=== PATIENT | female | born 1980 | race Caucasian/White ===

== ENCOUNTER 2024-12-09 15:52 | Outpatient (CLI) | payer BC, SELFPAY ==
--- OUTSIDE RECORDS SUMMARY | 2024-04-12 06:00 | XMS_ITS ---
Author Organization [facility] Address [address] [place] [id number] Care Team Providers Care Optical Mechanic Apprentice Name Role Phone Hi Argueta Unavailable [phone] Allergies Allergen (clinical drug ingredient) Drug/Non Drug Allergy documented on EMR Reaction Allergy Type Onset Date Status Penicillin Unknown reaction Drug Allergy Active Results Component Value Reference Range Notes Glucose (In-House) Reviewed date:04/15/2024 08:54:38 AM Interpretation:144 Performing Lab: Notes/Report: 144 blood glucose 144 74 - 106 mg/dL CBC Venipuncture (in house) Reviewed date:04/15/2024 08:54:38 AM Interpretation:wbc 10.3 Performing Lab: Notes/Report: wbc 10.3 wbc 10.3 3.5 - 10 lymph 36.0 15 - 50 mid 5.8 2 - 15 gran 58.2 35 - 80 rbc 5.15 3.5 - 5.5 hgb 13.9 11.5 - 16.5 hct 42.6 35 - 55 mcv 82.7 75 - 100 mch 27.1 25 - 35 mchc 32.7 31 - 38 platlet 296 100 - 400 Glycohemoglobin A1c (in hous e) Reviewed date:04/15/2024 08:54:38 AM Interpretation:6.5% Performing Lab: Notes/Report: 6.5% glycohemoglobin 6.5% 5 - 6.5 % P-Comprehensive Metabolic Pa hakeem (CMP) Reviewed date:04/15/2024 08:54:38 AM Interpretation:gluc 124 Performing Lab: Notes/Report: Test performed by [employer], [employer] [facility] , [address], [place] [address] Иван Sorto MD, Still Operator Brandy CLIA: [id number] Sodium 141 135-145 mmol/L Potassium 4.4 3.5-5.3 mmol/L Chloride 106 97-108 mmol/L CO2 26 22-32 mmol/L Glucose 124 65-99 mg/dL BUN 15 6-20 mg/dL Creatinine 0.76 0.50-1.00 mg/dL Calcium 9.1 8.6-10.4 mg/dL eGFR by Creatinine 99 >59 mL/min/1.73m2 Protein 6.8 6.0-8.3 g/dL Albumin 4.1 3.5-5.3 g/dL Alkaline Phosphatase 86 35-121 IU/L ALT (SGPT) 26 <5-47 IU/L AST (SGOT) 19 <5-40 IU/L Bilirubin, Total 0.3 <0.2-1.2 mg/dL A/G Ratio 1.5 1.1-2.5 P-Lipid Panel Reviewed date:04/15/2024 08:54:38 AM Interpretation:non-hdl 146 Performing Lab: Notes/Report: Test performed by [employer], [address] , [address], [place] [address] Иван Sorto MD, Still Operator Brandy CLIA: [id number] Cholesterol 197 <200 mg/dL Triglycerides 90 <150 mg/dL HDL Cholesterol 51 >39 mg/dL Cholesterol / HDL Ratio 3.86 0.00-4.44 Ratio Non-HDL Cholesterol 146 <130 mg/dL LDL Cholesterol (Calculation) 128 <130 mg/dL LDL Cholesterol Levels* Less than 100 mg/dL Optimal 100 to 129 mg/dL Near Optimal/ Above Optimal 130 to 159 mg/dL Borderline High 160 to 189 mg/dL High 190 mg/dL and above Very High * Categories as recommended by the 2004 ATPIII guidelines LDL/HDL Ratio 2.5 <3.3 Ratio LDL Cholesterol Patient History Test Date: 04/12/2024 LDL Results: 128 Units: mg/dL % Change: - P-TSH reflex to FT4 Reviewed date:04/15/2024 08:54:38 AM Interpretation: Normal Performing Lab: Notes/Report: Test performed by [facility] [address] [place] [address] , [facility] [place] [address] Иван Sorto MD, Still Operator Brandy CLIA: [id number] TSH reflex to FT4 1.11 0.43-5.25 mU/L P-Vitamin D 25-Hydroxy Reviewed date:04/15/2024 08:54:38 AM Interpretation:14.8 Performing Lab: Notes/Report: Test performed by [facility] [address] [place] [address] , [place] [address] Иван Sorto MD, Still Operator Brandy CLIA: [id number] Vitamin D 25-Hydroxy 14.8 30.0-100.0 ng/mL Interpretation of Vitamin D 25 OH: < 20 ng/mL - Deficiency 20 - 29 ng/mL - Insufficiency 30 - 100 ng/mL - Sufficiency > 100 ng/mL - Super-therapeutic- toxicity may occur above this level. Clinical correlation required. Reason For Referral Diagnosis 1 Leukocytosis, unspec ified (D72.829) Referral Organization [facility] Referring Provider First Name Hi Referring Provider Last Name Kendall Referring Provider Speciality Family Pra ctice Referred Provider Didier Gonzalez Referred Provider Specialty Hematology/O ncology General Notes Sadie Castillo 04/12/19 10:55:52 AM > [facility] to [facility] OncologyAnna Brynn 04/24/2024 8:48:43 AM > 04/23/2024 Referral Priority Routine REASON FOR VISIT muscle aches, labwork Medications Medication SIG (Take, Route, Frequency, Duration) Notes Start Date End Date Status Fluticasone Propionate 50 MCG/ACT 1 spray in each nostril Nasally once daily 04/12/2024 Active Loratadine 10 MG 1 tablet Orally Once a day 04/12/2024 Active Problems Problem Type SNOMED Code ICD Code Onset Dates Problem Status W/U Status Risk Notes Problem Leukocytosis (508731995) Leukocytosis, unspecified (D72.829) Active confirmed Problem Morbid obesity (292988946) Morbid obesity (E66.01) Active confirmed Problem Allergic rhinitis (50688339) Allergic rhinitis, unspecified seasonality, unspecified trigger (J30.9) Active confirmed Problem Vitamin D deficiency (22458549) Vitamin D deficiency (E55.9) Active confirmed Vital Signs Blood pressure systolic 130 mm Hg 04/12/19 25 Blood pressure diastolic 82 mm Hg 025 Heart Rate 65 /min 04/12/2024 Height 64 in 04/12/2024 Weight 301.4 lbs 04/12/2024 BMI 51.73 kg/m2 04/12/2024 Encounters Encounter Location Date Provider Diagnosis [facility] [address] [facility] [address] [place], [place] [id number] 04/12/2024 Hi Argueta IFG (impaired fastin g glucose) R73.01 ; Leukocytosis, unspecified D72.829 ; Morbid obesity E66.01 ; Allergic rhinitis, unspecified seasonality, unspecified trigger J30.9 ; Otalgia, left ear H92.02 and Vitamin D deficiency E55.9 Assessments Encounter Date Diagnosis (ICD Code) Assessment Notes Treatment Notes Treatment Clinical Notes Section Notes 04/12/2024 IFG (impaired fasting glucose) (ICD-10 - R73.01) 04/12/2024 Leukocytosis, unspecified (ICD-10 - D72.829) 04/12/2024 Morbid obesity (ICD-10 - E66.01) diet & exercise reviewed with patient 04/12/2024 Allergic rhinitis, unspecified seasonality, unspecified trigger (ICD-10 - J30.9) 04/12/2024 Otalgia, left ear (ICD-10 - H92.02) 04/12/2024 Vitamin D deficiency (ICD-10 - E55.9) Plan Of Treatment Medication Medication Name Sig Start Date Stop Date Notes Fluticasone Propionate 50 MCG/ACT 1 spray in each nostril Nasally once daily 04/12/2024 Loratadine 10 MG 1 tablet Orally Once a day 04/12/2024 Treatment Notes Assessment Notes Morbid obesity diet & exercise revi ewed with patient Referrals Referral Date Details 04/12/2024 04/12/2024, Didier Gonzalez Next Appt Details Follow Up: 6 Months, Reason: Progress Notes * LATA BORDENDOB:1980 (43 yo F)Acc No.[id number]:04/12/2024 Progress Notes Patient: LATA KUMAR Provider: Job Argueta M.D. :1980 A ge:43 Y S ex:Female Date:04/12/2024 Address:[address] [place] [address] Subjective: * Chief Complaints: * 1 . Muscle aches, labwork. * HPI: H PI: Patient is here today for e stablishing care and would like to have lab work done. Pt is fasting today. Pt sts that she was coming in with some muscle aches but sts that they have resolved. Pt believes she was aching because her Vitamin D was low. E NT/respiratory: ringing in ear P t sts that she was having some ringing in the left ear but sts that now she feels like there is something in her ear. Pt sts that it feels like something is moving. G astroenterology: c/o Abdominal Pain P t sts that she has been having some pains in the upper abdomen as well. * ROS: D ERMATOLOGY: no R nuzhat. n o H suzie. G ASTROENTEROLOGY: no N ausea. n o V omiting. n o D iarrhea.? U ROLOGY: no D ifficulty urinating. n o B lood in urine. * Medical History: I mpaired fasting glucose, Allergic rhinitis, Basal Cell Carcinoma, right side of nose, 2018, Migraine headache, complex, Gall bladder disease, 20 pack year smoking history, quit in 2023, Elevated WBC count, followed by Heme/Onc, Vitamin D deficiency, Fatty Liver. * Surgical History: C -Section 2003, 2012, cholecystectomy 2005, Nasal Adenoids Removed 03-25-2020. * Family History: F ather: alive 71 yrs, diagnosed with Diabetes, Heart Disease, Stroke. M other: alive 65 yrs, diagnosed with Stroke. M aternal Grand Mother: diagnosed with Cancer. S ibdwayne: diagnosed with Diabetes. 2 brother(s) , 2 sister(s) . 1 son(s) , 1 daughter(s) . . * Social History: C URRENT TOBACCO USE: No . C affeine: yes, frequency: daily, coffee, tea and soft drinks. Home smoke detector use: yes. Alcohol: no. Sexually active: yes. Travel ouside [place]: no. * Medications: N one * Allergies: P enicillin: Unknown reaction. Objective: * Vitals: W t:301.4, Temp:98.6, BP:130/82, HR:65, Nurse:JULIANN, Ht:64, BMI:51.73. * Examination: E NT/Respiratory: General Appearance: N AD. E yes: P ERRLA, sclera clear. E ars: a uditory canals normal bilaterally, TM's WNL. N ose : nares patent, pale, edematous turbinates. O ral cavity : n o erythema or exudate seen on pharynx. N antonio : n o cervical lymphadenopathy. H eart : R RR, normal S1 S2. L ungs: c lear to auscultation bilaterally. Assessment: * Assessment: 1. I FG (impaired fasting glucose) - R73.01 (Primary) 2 . L eukocytosis, unspecified - D72.829 3 . M orbid obesity - E66.01 4 . A llergic rhinitis, unspecified seasonality, unspecified trigger - J30.9 5 . O talgia, left ear - H92.02 6 . V itamin D deficiency - E55.9 Plan: * Treatment: Value Reference Range A /G Ratio 1.5 1.1-2.5 - * A lbumin 4.1 3.5-5.3 - g/dL * A lkaline Phosphatase 86 35-121 - IU/L * A LT (SGPT) 26 <5-47 - IU/L * A ST (SGOT) 19 <5-40 - IU/L * B ilirubin, Total 0.3 <0.2-1.2 - mg/dL * B UN 15 6-20 - mg/dL * C alcium 9.1 8.6-10.4 - mg/dL * C hloride 106 97-108 - mmol/L * C O2 26 22-32 - mmol/L * C reatinine 0.76 0.50-1.00 - mg/dL * G lucose 124 H 65-99 - mg/dL * P otassium 4.4 3.5-5.3 - mmol/L * S odium 141 135-145 - mmol/L * P rotein 6.8 6.0-8.3 - g/dL * e GFR by Creatinine 99 >59 - mL/min/1.73m2 * Kathie Nelson 04/15/2024 8:54: 35 AM >See phone encounter ?LAB: P-Lipid Panel (Collection Date & Time - 04/12/2024 09:41 AM)?non-hdl 146* Value Reference Range C holesterol / HDL Ratio 3.86 0.00-4.44 - Ratio * C holesterol 197 <200 - mg/dL * H DL Cholesterol 51 >39 - mg/dL * L DL Cholesterol (Calculation) 128 <130 - mg/d L * L DL/HDL Ratio 2.5 <3.3 - Ratio * N on-HDL Cholesterol 146 H <130 - mg/dL * T riglycerides 90 <150 - mg/dL * Kathie Nelson 04/15/2024 8:54: 35 AM >See phone encounter ?LAB: P-TSH reflex to FT4 (Collection Date & Time - 04/12/2024 09:41 AM)? Normal* Value Reference Range T SH reflex to FT4 1.11 0.43-5.25 - mU/L * Kathie Nelson 04/15/2024 8:54: 35 AM >See phone encounter ?LAB: Glucose (In-House) (Collection Date & Time - 04/12/2024)?144* Value Reference Range b lood glucose 144 74 - 106 mg/dL * Jaelyn Ingram 04/12/2024 12:3 1:47 PM > Kathie Nelson 04/15/2024 8:54:35 AM >See phone encounter ?LAB: Glycohemoglobin A1c (in house) (Collection Date & Time - 04/12/2024)? 6.5%* Value Reference Range g lycohemoglobin 6.5% 5 - 6.5 % * Jaelyn Ingram 04/12/2024 12:3 4:19 PM > Kathie Nelson 04/15/2024 8:54:35 AM >See phone encounter 2.?Leukocytosis, unspecified?LAB: CBC Venipuncture (in house) (Collection Date & Time - 04/12/2024)?wbc 10.3* Value Reference Range w bc 10.3 3.5 - 10 * l ymph 36.0 15 - 50 * m id 5.8 2 - 15 * g ran 58.2 35 - 80 * r bc 5.15 3.5 - 5.5 * h gb 13.9 11.5 - 16.5 * h ct 42.6 35 - 55 * m cv 82.7 75 - 100 * m ch 27.1 25 - 35 * m chc 32.7 31 - 38 * p latlet 296 100 - 400 * Jaelyn Ingram 04/12/2024 12:3 3:03 PM > Kathie Nelson 04/15/2024 8:54:35 AM >See phone encounter ? Referral To:Didier Gonzalez??Hematology/Oncology ?Reason: 3.?Morbid obesity?LAB: P-Comprehensive Metabolic Panel (CMP) (Collection Date & Time - 04/12/2024 09:41 AM)?gluc 124* Value Reference Range A /G Ratio 1.5 1.1-2.5 - * A lbumin 4.1 3.5-5.3 - g/dL * A lkaline Phosphatase 86 35-121 - IU/L * A LT (SGPT) 26 <5-47 - IU/L * A ST (SGOT) 19 <5-40 - IU/L * B ilirubin, Total 0.3 <0.2-1.2 - mg/dL * B UN 15 6-20 - mg/dL * C alcium 9.1 8.6-10.4 - mg/dL * C hloride 106 97-108 - mmol/L * C O2 26 22-32 - mmol/L * C reatinine 0.76 0.50-1.00 - mg/dL * G lucose 124 H 65-99 - mg/dL * P otassium 4.4 3.5-5.3 - mmol/L * S odium 141 135-145 - mmol/L * P rotein 6.8 6.0-8.3 - g/dL * e GFR by Creatinine 99 >59 - mL/min/1.73m2 * Kathie Nelson 04/15/2024 8:54: 35 AM >See phone encounter ?LAB: P-Lipid Panel (Collection Date & Time - 04/12/2024 09:41 AM)?non-hdl 146* Value Reference Range C holesterol / HDL Ratio 3.86 0.00-4.44 - Ratio * C holesterol 197 <200 - mg/dL * H DL Cholesterol 51 >39 - mg/dL * L DL Cholesterol (Calculation) 128 <130 - mg/d L * L DL/HDL Ratio 2.5 <3.3 - Ratio * N on-HDL Cholesterol 146 H <130 - mg/dL * T riglycerides 90 <150 - mg/dL * Kathie Nelson 04/15/2024 8:54: 35 AM >See phone encounter ?LAB: P-TSH reflex to FT4 (Collection Date & Time - 04/12/2024 09:41 AM)? Normal* Value Reference Range T SH reflex to FT4 1.11 0.43-5.25 - mU/L * Kathie Nelson 04/15/2024 8:54: 35 AM >See phone encounter Notes: diet & exercise reviewed with patient??4.?Allergic rhinitis, unspecified seasonality, unspecified trigger? Start Loratadine Tablet, 10 MG, 1 tablet, Orally, Once a day, 30, Refills 1;?Start FluticasonePropionate Suspension, 50 MCG/ACT, 1 spray in each nostril, Nasally, once daily, 1, Refills 1.??5.?Vitamin D deficiency?LAB: P-Vitamin D 25-Hydroxy (Collection Date & Time - 04/12/2024 09:41 AM)? 14.8* Value Reference Range V itamin D 25-Hydroxy 14.8 L 30.0-100.0 - ng/mL * Kathie Nelson 04/15/2024 8:54: 35 AM >See phone encounter * Procedure Codes: 8 2950 GLUCOSE TEST, 59960 GLYCATED HEMOGLOBIN TEST, Modifiers: QW , 79457 CBC WITH AUTO DIFF * Follow Up: 6 Months * Images: Billing Information: * Visit Code: 33449 Office Visit, New Pt., Level 4. * Procedure Codes: 62872 GLU[address]SE TEST. 39[address] GLYCATED HEMOGLOBIN TEST. Modifiers: QW 24391 CBC WITH AUTO DIFF. * Electronic signature of Socorro Argueta MD on 12/09/2024 at 03:59 PM EDT Sign off status: Pending * Provider: Job Argueta M.D. Date: 0 04/12/2024 Generated for George goode/Xochitlg/eTransmitting on: 0 12/09/2024 03:59 PM EDT History and Physical Notes * HPI (History of Present Illness) Category Sub-Category Detail Notes Category Not es ENT/respiratory ringing in ear Pt sts that she was having some ringing in the left ear but sts that now she feels like there is something in her ear. Pt sts that it feels like something is moving Gastroenterology Abdominal Pain Pt sts that she has been having some pains in the upper abdomen as well HPI Patient is here toda y for establishing care and would like to have lab work done. Pt is fasting today. Pt sts that she was coming in with some muscle aches but sts that they have resolved. Pt believes she was aching because her Vitamin D was low Examination Category Sub-Category Detail Notes Category Not es ENT/Respiratory Oral cavity : no erythema or exudate s een on pharynx Ears: auditory canals norm al bilaterally, TM's WNL Neck : no cervical lymphade nopathy Heart : RRR, normal S1 S2 Lungs: clear to auscultatio n bilaterally General Appearance: NAD Nose : nares patent, pale, edematous turbinates Eyes: PERRLA, sclera clear Consultation Request Notes Referral Date Referring Provider Referred Provider Not es 04/12/2024 Hi Argueta Michael
--- OUTSIDE RECORDS SUMMARY | 2024-07-03 06:15 | XMS_ITS ---
Author Organization [facility] Address [address] [facility] [address] [place] [id number] Care Team Providers Care Rabbet Operator Name Role Phone Hi Argueta Unavailable [phone] Allergies Allergen (clinical drug ingredient) Drug/Non Drug Allergy documented on EMR Reaction Allergy Type Onset Date Status metformin metFORMIN vomiting Drug Allergy Active Penicillin Unknown reaction Drug Allergy Active REASON FOR VISIT fasting check blood sugar and discuss a few issues Medications Medication SIG (Take, Route, Frequency, Duration) Notes Start Date End Date Status Loratadine 10 MG 1 tablet Orally Once a day 2024 Active Fluticasone Propionate 50 MCG/ACT 1 spray in each nostril Nasally once daily 04/12/2024 Active CPAP Supplies - as directed as directed 04/15/2024 Active Ozempic (0.25 or 0.5 MG/DOSE) 2 MG/3ML 0.25 mg Subcutaneous once weekly 07/03/2024 Active Vitamin D3 1.25 MG (83424 UT) 1 capsule Orally once weekly 04/16/2024 Active Problems Problem Type SNOMED Code ICD Code Onset Dates Problem Status W/U Status Risk Notes Problem Type II diabetes mellitus without complication (870250382) Type 2 diabetes mellitus without complication, without long-term current use of insulin (E11.9) Active confirmed Vital Signs Blood pressure systolic 130 mm Hg 07/04/19 25 Blood pressure diastolic 80 mm Hg 025 Heart Rate 83 /min 07/03/2024 Height 64 in 07/03/2024 Weight 303.2 lbs 07/03/2024 BMI 52.04 kg/m2 07/03/2024 Encounters Encounter Location Date Provider Diagnosis [facility] [address] [place] [id number] 07/03/2024 Hi Argueta Type 2 diabetes mellitus without complication, without long-term current use of insulin E11.9 and Vitamin D deficiency E55.9 Assessments Encounter Date Diagnosis (ICD Code) Assessment Notes Treatment Notes Treatment Clinical Notes Section Notes 07/03/2024 Type 2 diabetes mellitus without complication, without long-term current use of insulin (ICD-10 - E11.9) 07/03/2024 Vitamin D deficiency (ICD-10 - E55.9) Plan Of Treatment Medication Medication Name Sig Start Date Stop Date Notes Ozempic (0.25 or 0.5 MG/DOSE) 2 MG/3ML 0.25 mg Subcutaneous once weekly 07/03/2024 Next Appt Details Follow Up: as scheduled,and prn, Reason: Progress Notes * LATA BORDENDOB:1980 (43 yo F)Acc No.[id number]:07/03/2024 Progress Notes Patient: LATA KUMAR Provider: Job Argueta M.D. :1980 A ge:43 Y S ex:Female Date:07/03/2024 Address:[address] [place] [address] Subjective: * Chief Complaints: * 1 . Fasting check blood sugar and discuss a few issues. * HPI: H PI: 43 year old female presents with c/o Patient is here today for?follow up on diabetes. She has not been able to tolerate metformin in the past. She still occasionally has hip pain. * ROS: D ERMATOLOGY: no R nuzhat. n o H suzie. G ASTROENTEROLOGY: no N ausea. n o V omiting. U ROLOGY: no D ifficulty urinating. n [...] 2003, 2012, cholecystectomy 2005, Nasal Adenoids Removed 03/25/2020. * Hospitalization/Major Diagno stic Procedure: D enies Past Hospitalization. * Family History: F ather: alive 71 [...] yes. Travel ouside [place]: no. * Medications: T aking Loratadine 10 MG Tablet 1 tablet Orally Once a day , Taking Fluticasone Propionate 50 MCG/ACT Suspension 1 spray in each nostril Nasally once daily , Taking CPAP Supplies - - as directed as directed , Taking Vitamin D3 1.25 MG (16687 UT) Capsule 1 capsule Orally once weekly , Medication List reviewed and reconciled with the patient * Allergies: P enicillin: Unknown reaction, metFORMIN: vomiting. Objective: * Vitals: W t: 303.2, Temp: 98.1, BP: 130/80, HR: 83, Nurse: irene, Ht: 64, BMI:52.04. * Examination: G eneral Examination: General Appearance: N AD. H ip / Thigh: Hip joint: left. R odalis of motion: n ormal flexion, extension & rotation. G ait: n ormal. Assessment: * Assessment: 1. T ype 2 diabetes mellitus without complication, without long-term current use of insulin - E11.9 (Primary) 2 . V itamin D deficiency - E55.9 Plan: * Treatment: * Procedure Codes: 3 044F HG A1C LEVEL LT 7.0%, 3075F SYST BP GE 130 - 139MM HG, 3079F DIAST BP 80-89 MM HG * Follow Up: a s scheduled,and prn * Images: Billing Information: * Visit Code: 93082 Office Visit, Est Pt., Level 3. * Procedure Codes: 3044F HG A1C LEVEL LT 7.0%. 3075F SYST BP GE 130 - 139MM HG. 3079F DIAST BP 80-89 MM HG. * Electronic signature of Socorro Argueta MD on 12/09/2024 at 03:59 PM EDT Sign off status: Pending * Provider: Job Argueta M.D. Date: 0 07/03/2024 Generated for George goode/Slime/eToctaviosmitting on: 0 12/09/2024 03:59 PM EDT History and Physical Notes * HPI (History of Present Illness) Category Sub-Category Detail Notes Category Not es HPI Patient is here today for follow up on diabetes. She has not been able to tolerate metformin in the past. She still occasionally has hip pain Examination Category Sub-Category Detail Notes Category Not es General Examination General Appearance: NAD Hip / Thigh Gait: normal Range of motion: normal flexion, exte nsion & rotation Hip joint: left
--- OUTSIDE RECORDS SUMMARY | 2024-10-17 06:45 | XMS_ITS ---
Author Organization [facility] Address [address] [facility] [address] [place] [phone] Care Team Providers Care Strings Teacher Name Role Phone Hi Argueta Unavailable [phone] Allergies Allergen (clinical drug ingredient) Drug/Non Drug [...] Interpretation:Normal Performing Lab: Notes/Report: Test performed by [facility] [address] [place] [address] , [address], [place] [address] Иван Sorto MD, Network Applications Specialist CLIA: [id number] Amylase 45 28-100 U/L P-Comprehensive Metabolic Pa hakeem (CMP) Reviewed date:10/18/2024 10:16:11 AM Interpretation:gluc 102 Performing Lab: Notes/Report: Test performed by [facility] [address] [place] [address] , [address], [place] [address] Иван Sorto MD, Network Applications Specialist CLIA: [id number] Sodium 141 135-145 mmol/L Potassium 5.0 3.5-5.3 [...] Interpretation:Normal Performing Lab: Notes/Report: Test performed by [facility] [address] [place] [address] , [address], [place] [address] Иван Sorto MD, Network Applications Specialist CLIA: [id number] Lipase 36.0 13.0-60.0 U/L P-Vitamin D 25-Hydroxy Reviewed date:10/18/2024 10:16:11 AM Interpretation:32.6 Performing Lab: Notes/Report: Test performed by [facility] [address] [place] [address] [place] [address] Иван Sorto MD, Network Applications Specialist CLIA: [id number] Vitamin D 25-Hydroxy 32.6 30.0-100.0 ng/mL Interpretation [...] End Date Status Vitamin D3 1.25 MG (67805 UT) 1 capsule Orally once weekly 04/16/2024 Active Ozempic (0.25 or 0.5 MG/DOSE) 2 MG/3ML 0.5 mg Subcutaneous once weekly; Duration: 30 days 07/03/2024 Active Fluticasone Propionate 50 MCG/ACT 1 spray in each nostril Nasally once daily 04/12/2024 Active CPAP Supplies - as directed as directed 04/15/2024 Active Loratadine 10 MG 1 tablet Orally Once a day 2024 Active Vital Signs Blood pressure systolic 130 mm Hg 10/18/19 25 Blood pressure diastolic 80 mm Hg 025 Heart Rate 73 /min 10/17/2024 Height 64 in 10/17/2024 Weight 299 lbs 10/17/2024 BMI 51.32 kg/m2 10/17/2024 Encounters Encounter Location Date Provider Diagnosis [facility] [address] [facility] [address] [place] [address], [place] [phone] 10/17/2024 Hi Argueta Type 2 diabetes mellitus [...] Notes * LATA BORDENDOB:1980 (43 yo F)Acc No.[id number]:10/17/2024 Progress Notes Patient: VICKIE KUMARECCA Provider: Job Argueta M.D. :1980 A ge:43 Y S ex:Female Date:10/17/2024 Address:[address] [place] [address], [id number] Subjective: * Chief Complaints: * 1 . [...] directed , Taking Vitamin D3 1.25 MG (90127 UT) Capsule 1 capsule Orally once weekly [...] glucose 116 74 - 106 mg/dL * Justina Quevedo 10/17/2024 11:54: 01 AM EDT >Hi Argueta 10/17/2024 11:26:22 PM EDT > ?LAB: Glycohemoglobin A1c (in house) (Collection Date & Time - 10/17/2024)? 6.2* Value Reference Range g lycohemoglobin 6.2% 5 - 6.5 % * Justina Quevedo 10/17/2024 11:54: 46 AM EDT >Hi Argueta [...] A mylase 45 28-100 - U/L * OmarKathie argueta 10/18/2024 10:1 6:04 AM EDT > See [...] * Procedure Codes: 8 2950 GLUCOSE TEST, 92411 GLYCATED HEMOGLOBIN TEST, Modifiers: QW , 65262 CBC WITH AUTO DIFF, 1036F TOBACCO NON-USER, 3044F HG A1C LEVEL LT 7.0%, 3075F SYST BP GE 130 - 139MM HG, 3079F DIAST BP 80-89 MM HG * Follow Up: 6 Months * Images: Billing Information: * Visit Code: 06713 Office Visit, Est Pt., Level 4. * Procedure Codes: 69295 GLUCOSE TEST. 32288 GLYCATED HEMOGLOBIN TEST. Modifiers: QW 67033 CBC WITH AUTO DIFF. 1036F TOBACCO NON-USER. 3044F HG A1C LEVEL LT 7.0%. 3075F SYST BP GE 130 - 139MM HG. 3079F DIAST BP 80-89 MM HG. * Electronic signature of Socorro Argueta MD on 12/09/2024 at 03:58 PM EDT Sign off status: Pending * Provider: Job Argueta M.D. Date: 0 10/17/2024 Generated for George goode/Slime/Madisonsmitting on: 0 12/09/2024 03:58 PM EDT History and Physical Notes * [...]
--- OUTSIDE RECORDS SUMMARY | 2024-12-09 15:59 | XMS_ITS | Clinical Summary ---
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 Gender Identity Not on file Sexual Orientation Not on file Plan of Treatment Health Maintenance Due Date Last Done Comments Depression Screening (12+) 1991 Tobacco Cessation Counseling and Screening (12+) 1991 HIV Screening 12/13/1994 Hepatitis C Screening 12/13/1997 DTAP/TDAP/TD VACCINES (1 - Tdap) 12/13/1998 Pap Smear 12/13/2000 Breast Cancer Screening 2019 COVID-19 VACCINE (2023-2 5 season) 2024 Influenza Vaccine (#1) 2024 Pneumococcal Vaccine: 0-49 Years Aged Out No longer eligible based on patient's age to complete this topic Insurance BC [facility] TRAD [facility] DISHA TRAD
--- OUTSIDE RECORDS SUMMARY | 2024-12-09 15:59 | XMS_ITS | Patient Health Record ---
Author Organization [facility] Address [address] [place] [id number] Care Team Providers Care Systems Development Consultant Name Role Phone Hi Argueta Unavailable [phone] Kajal Saldaña Unavailable [phone] Allergies Allergen (clinical drug ingredient) Drug/Non Drug Allergy documented on EMR Reaction Allergy Type Onset Date Status metformin metFORMIN vomiting Drug Allergy Active Penicillin Unknown reaction Drug Allergy Active Results Component Value Reference Range Notes RADHA Reviewed date:04/10/2024 02:22:59 PM Interpretation: Performing Lab: Notes/Report: P-Vitamin D 25-Hydroxy Reviewed date:04/15/2024 08:54:38 AM Interpretation:14.8 Performing Lab: Notes/Report: Test performed by [facility] [address] [place], [place] [address] , [facility], [place] [address] Иван Sorto MD, Reservoir Engineering Consultant CLIA: [id number] Vitamin D 25-Hydroxy 14.8 30.0-100.0 ng/mL Interpretation of Vitamin D 25 [place]: < 20 ng/mL - Deficiency 20 - 29 ng/mL - Insufficiency 30 - 100 ng/mL - Sufficiency > 100 ng/mL - Super-therapeutic- toxicity may occur above this level. Clinical correlation required. P-TSH reflex to FT4 Reviewed date:04/15/2024 08:54:38 AM Interpretation: Normal Performing Lab: Notes/Report: Test performed by [facility] [address] [place], [place] [address] , [facility], [place] [address] Иван Sorto MD, Reservoir Engineering Consultant CLIA: [id number] TSH reflex to FT4 1.11 0.43-5.25 mU/L P-Lipid Panel Reviewed date:04/15/2024 08:54:38 AM Interpretation:non-hdl 146 Performing Lab: Notes/Report: Test performed by [facility] [address] [place] [address] [place] [address] Иван Sorto MD, Reservoir Engineering Consultant CLIA: [id number] Cholesterol 197 <200 mg/dL Triglycerides 90 <150 [...] Results: 128 Units: mg/dL % Change: - P-Comprehensive Metabolic Pa hakeem (CMP) Reviewed date:04/15/2024 08:54:38 AM Interpretation:gluc 124 Performing Lab: Notes/Report: Test performed by [facility] [address] [place] [address] Bari [place]ha, [place] [address] Иван Sorto MD, Reservoir Engineering Consultant CLIA: [id number] Sodium 141 135-145 mmol/L Potassium 4.4 3.5-5.3 [...] 0.3 <0.2-1.2 mg/dL A/G Ratio 1.5 1.1-2.5 Glycohemoglobin A1c (in hous e) Reviewed date:04/15/2024 08:54:38 AM Interpretation:6.5% Performing Lab: Notes/Report: 6.5% glycohemoglobin 6.5% 5 - 6.5 % CBC Venipuncture (in house) Reviewed date:04/15/2024 08:54:38 [...] - 38 platlet 296 100 - 400 Glucose (In-House) Reviewed date:04/15/2024 08:54:38 AM Interpretation:144 Performing Lab: Notes/Report: 144 blood glucose 144 74 - 106 mg/dL Glycohemoglobin A1c (in hous e) Reviewed date:10/17/2024 11:26:48 PM Interpretation:6.2 Performing Lab: Notes/Report: 6.2 glycohemoglobin 6.2% 5 - 6.5 % P-Vitamin D 25-Hydroxy Reviewed date:10/18/2024 10:16:11 AM Interpretation:32.6 Performing Lab: Notes/Report: Test performed by [facility] , [place] [address] Иван Sorto MD, Reservoir Engineering Consultant CLIA: [id number] Vitamin D 25-Hydroxy 32.6 30.0-100.0 ng/mL Interpretation of Vitamin D 25 [place]: < 20 ng/mL - Deficiency 20 - 29 ng/mL - Insufficiency 30 - 100 ng/mL - Sufficiency > 100 ng/mL - Super-therapeutic- toxicity may occur above this level. Clinical correlation required. P-Lipase Reviewed date:10/18/2024 10:16:11 AM Interpretation:Normal Performing Lab: Notes/Report: Test performed by [facility] [address] [place] [address] , [address], [place] [address] Иван Sorto MD, Reservoir Engineering Consultant CLIA: [id number] Lipase 36.0 13.0-60.0 U/L P-Comprehensive Metabolic Pa hakeem (CMP) Reviewed date:10/18/2024 10:16:11 AM Interpretation:gluc 102 Performing Lab: Notes/Report: Test performed by [facility] [address] [place] [address] , [address], [place] [address] Иван Sorto MD, Reservoir Engineering Consultant CLIA: [id number] Sodium 141 135-145 mmol/L Potassium 5.0 3.5-5.3 [...] 0.3 <0.2-1.2 mg/dL A/G Ratio 1.6 1.1-2.5 P-Amylase Reviewed date:10/18/2024 10:16:11 AM Interpretation:Normal Performing Lab: Notes/Report: Test performed by [facility] [address] [place] [address] , [address], [place] [address] Иван Sorto MD, Reservoir Engineering Consultant CLIA: [id number] Amylase 45 28-100 U/L CBC Venipuncture (in house) Reviewed date:10/17/2024 11:26:38 [...] - 38 platlet 375 100 - 400 Glucose (In-House) Reviewed date:10/17/2024 11:26:25 PM Interpretation:116 Performing Lab: Notes/Report: 116 blood glucose 116 74 - 106 mg/dL Reason For Referral Diagnosis 1 Leukocytosis, unspec ified (D72.829) Referral Organization [facility] Referring Provider First Name Hi Referring Provider Last Name Kendall Referring Provider Speciality [facility] ctice Referred Provider Didier Gonzalez Referred Provider Specialty Hematology/O ncology General Notes Sadie Castillo 04/12/19 10:55:52 AM > faxed to [facility] OncologyAnna Brynn 04/24/2024 8:48:43 AM > 04/23/2024 Referral Priority Routine Medications Medication SIG (Take, Route, Frequency, Duration) Notes Start Date End Date Status CPAP Supplies - as directed as directed 04/15/2024 Active Omeprazole 20 MG 1 capsule 1/2 to 1 h our before morning meal Orally Once a day; Duration: 30 days 12/09/2024 Active Vitamin D3 1.25 MG (74409 UT) 1 capsule Orally weekly 10/20/2024 Acti ve Ozempic (1 MG/DOSE) 4 MG/3ML 1 mg Subcutaneous once a week; Duration: 30 days Active Hyoscyamine Sulfate 0.125 MG 1 tablet on the tongue and allow to dissolve as needed Orally every 8 hrs AC As needed 12/09/2024 Active metroNIDAZOLE 500 MG 1 tablet Orally Thr ee times a day; Duration: 7 days 12/09/2024 Active Immunizations Vaccine Route Administration Date Status Comme nts Hepatitis B (20 and more) IM Intramuscular 05/03/2023 Admi nistered Hepatitis B (20 and more) Unknown 06/01/2023 Administer ed Tetanus Dtap-Daptacel (under 7yrs) Unknown 07/13/2006 Administered Tetanus Tdap-Adacel (over 7yrs) Unknown 10/25/2012 Administered Tetanus Tdap-Adacel (over 7yrs) Unknown 05/03/2023 Administered Problems Problem Type SNOMED Code ICD Code Onset Dates Problem Status W/U Status Risk Notes Problem Gastroesophageal reflux disease (160892586) GERD (gastroesophag eal reflux disease) (K21.9) Active confirmed Problem Vitamin D deficiency (46803120) Vitamin D deficiency (E55.9) Active confirmed Problem Morbid obesity (408478336) Morbid obesity (E66.01) Active confirmed Problem Type II diabetes mellitus without complication (952963174) Type 2 diabetes mellitus without complication, without long-term current use of insulin (E11.9) Active confirmed Problem Leukocytosis (682952139) Leukocytosis, unspecified (D72.829) Active confirmed Problem Allergic rhinitis (56771982) Allergic rhinitis, unspecified seasonality, unspecified trigger (J30.9) Active confirmed Vital Signs Heart Rate 79 /min 12/09/2024 Blood pressure diastolic 80 mm Hg 12/09/2024 Height 64 in 12/09/2024 Blood pressure systolic 120 mm Hg 12/09/2024 Weight 294.2 lbs 12/09/2024 BMI 50.49 kg/m2 12/09/2024 Encounters Encounter [facility] Date [facility] [address] [place] [id number] 04/12/2024 [place] IFG (impaired fastin g glucose) R73.01 ; Leukocytosis, unspecified D72.829 ; Morbid obesity E66.01 ; Allergic rhinitis, unspecified seasonality, unspecified trigger J30.9 ; Otalgia, left ear H92.02 and Vitamin D deficiency E55.9 [facility] [address] [place] [id number] 07/03/2024 Hi [place] Type 2 diabetes mellitus without complication, without long-term current use of insulin E11.9 and Vitamin D deficiency E55.9 [facility] [address] [place], [place] [id number] 10/17/2024 Hi [place] Type 2 diabetes mellitus without complication, without long-term current use of insulin E11.9 ; Vitamin D deficiency E55.9 and Epigastric abdominal pain R10.13 [facility] [address] [place], [place] [id number] 12/09/2024 Kajal Saldaña Abdominal pain R10.9 ; GERD (gastroesophageal reflux disease) K21.9 and Diarrhea R19.7 [facility] [address] [place], [place] [id number] 04/15/2024 Hi [place] [facility] [address] [place] [id number] 04/15/2024 Hi [place] [facility] [address] [place], [place] [id number] 07/29/2024 Hi [place] Type 2 diabetes mellitus without complication, without long-term current use of insulin E11.9 [facility] [address] [place], [place] [id number] 07/30/2024 Hi [place] [facility] [address] [place] [id number] 10/18/2024 Hi [place] Type 2 diabetes mellitus without complication, without long-term current use of insulin E11.9 [facility] [address] [place] [id number] 10/29/2024 Hi [place] [facility] [address] [place] [id number] 11/29/2024 Hi [place] Assessments Encounter Date Diagnosis (ICD Code) Assessment Notes Treatment Notes Treatment Clinical Notes Section Notes 04/12/2024 Leukocytosis, unspecified (ICD-10 - D72.829) 04/12/2024 IFG (impaired fasting glucose) (ICD-10 - R73.01) 07/03/2024 Vitamin D deficiency (ICD-10 - E55.9) 07/03/2024 Type 2 diabetes mellitus without complication, without long-term current use of insulin (ICD-10 - E11.9) 07/29/2024 Type 2 diabetes mellitus without complication, without long-term current use of insulin (ICD-10 - E11.9) 10/17/2024 Vitamin D deficiency (ICD-10 - E55.9) 10/17/2024 Type 2 diabetes mellitus without complication, without long-term current use of insulin (ICD-10 - E11.9) Plan to increase Ozempic dose if pancreas labs are normal 10/18/2024 Type 2 diabetes mellitus without complication, without long-term current use of insulin (ICD-10 - E11.9) 12/09/2024 GERD (gastroesophagea l reflux disease) (ICD-10 - K21.9) 12/09/2024 Abdominal pain (ICD-10 - R10.9) 12/09/2024 Diarrhea (ICD-10 - R19.7) 10/17/2024 Epigastric abdominal pain (ICD-10 - R10.13) 04/12/2024 Morbid obesity (ICD-10 - E66.01) diet & exercise reviewed with patient 04/12/2024 Allergic rhinitis, unspecified seasonality, unspecified trigger (ICD-10 - J30.9) 04/12/2024 Otalgia, left ear (ICD-10 - H92.02) 04/12/2024 Vitamin D deficiency (ICD-10 - E55.9) Plan Of Treatment Pending Test Test Name Order Date CBC Fingerstick (in house) 12/09/2024 X ray : Abdomen Series 12/09/2024 Diarrhea Panel ([facility]) 12/09/2024 Insurance Providers Payer Name Payer Address Payer Phone Subscriber Number Group Number Insured Name Patient Relationship to Insured Coverage Start Date Coverage End Date [employer] [address] [place] [address] [id number] LATA FRIAS Self - patient is the insured Medical (General) History Medical History History ICD Code Impaired fasting glucose allergic rhinitis Basal Cell Carcinoma, right side of nose , 2018 migraine headache, complex gall bladder disease 20 pack year smoking history, quit in Elevated WBC count, followed by Heme/Onc Vitamin D deficiency Fatty Liver Surgical History Surgery Date(Month/Year) 2003, 2012 cholecystectomy 2005 Nasal Adenoids Removed 03/25/2020
--- OUTSIDE RECORDS SUMMARY | 2024-12-09 16:00 | XMS_ITS | Referral Summary ---
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
--- NOTE | 2024-12-09 16:01 | XR_ITS ---
PROCEDURE INFORMATION: Exam: XR Complete Acute Abdomen Series Including Chest Exam date and time: 12/09/2024 4:20 PM Age: 43 years old Clinical indication: Abdominal pain TECHNIQUE: Imaging protocol: Radiologic exam. Complete acute abdomen series, including 2 or more views of the abdomen and a single view chest. COMPARISON: No relevant prior studies available. FINDINGS: Lungs: Normal. No consolidation. Pleural spaces: Normal. No pleural effusions. No pneumothorax. Heart/Mediastinum: Normal. No cardiomegaly. Gastrointestinal tract: No dilated bowel Intraperitoneal space: Surgical clips in the right upper quadrant Organs: IUD overlies the pelvis Bones/joints: Normal. No acute fracture. Soft tissues: Normal. IMPRESSION: No acute findings.
== END 2024-12-09 23:59 | disposition home or self-care (01) ==
LOC: RAD 15:57
PROVIDERS: PCP Family Medicine; Visit Provider Nurse Practitioner Family
DX: R10.9 Unspecified abdominal pain (principal)
CPT/HCPCS: 74021

== ENCOUNTER 2024-12-13 08:49 | Outpatient (CLI) | payer BC, SELFPAY ==
--- OUTSIDE RECORDS SUMMARY | 2024-12-13 08:51 | XMS_ITS | Referral Summary ---
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
--- OUTSIDE RECORDS SUMMARY | 2024-12-13 08:51 | XMS_ITS | Clinical Summary ---
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
[2024-12-13 08:55] LABS: Adenovirus F 40/41, stool Not Detected (NotDetected); Clostridium Difficile A/B, PCR Not Detected (NotDetected); Cyclospora Cayetanesis Not Detected (NotDetected); Plesimonas Shigalloides, PCR Not Detected (NotDetected); Salmonella, PCR Not Detected (NotDetected); Shiga-like toxin E coli Not Detected (NotDetected); Shigella Enterovasive E coli Not Detected (NotDetected); Vibrio, PCR Not Detected (NotDetected); Yersinia Entercolitica, PCR Not Detected (NotDetected)
== END 2024-12-13 23:59 | disposition home or self-care (01) ==
LOC: LAB 08:50
PROVIDERS: PCP Family Medicine; Visit Provider Nurse Practitioner Family
DX: R19.7 Diarrhea, unspecified (principal)
CPT/HCPCS: 87507

== ENCOUNTER 2024-12-30 13:55 | Outpatient (CLI) | payer BC, SELFPAY ==
--- OUTSIDE RECORDS SUMMARY | 2024-04-12 06:00 | XMS_ITS ---
Author Organization [facility] Address [address] [place] [id number] Care Team Providers Care Art Department Head Name Role Phone Hi Argueta Unavailable [phone] Allergies Allergen (clinical drug ingredient) Drug/Non Drug [...] 124 Performing Lab: Notes/Report: Test performed by [employer], [employer] [facility] , [address], [place] [address] Иван Sorto MD, Wet Primer Powder Blender CLIA: [id number] Sodium 141 135-145 mmol/L Potassium 4.4 3.5-5.3 [...] 146 Performing Lab: Notes/Report: Test performed by [employer], [address] , [address], [place] [address] Иван Sorto MD, Wet Primer Powder Blender CLIA: [id number] Cholesterol 197 <200 mg/dL Triglycerides 90 <150 [...] Normal Performing Lab: Notes/Report: Test performed by [employer] [address] [place] [address] , [facility] [place] [address] Иван Sorto MD, Wet Primer Powder Blender CLIA: [id number] TSH reflex to FT4 1.11 0.43-5.25 mU/L P-Vitamin D 25-Hydroxy Reviewed date:04/15/2024 08:54:38 AM Interpretation:14.8 Performing Lab: Notes/Report: Test performed by [employer] [address] [place] [address] , [place] [address] Иван Sorto MD, Wet Primer Powder Blender CLIA: [id number] Vitamin D 25-Hydroxy 14.8 30.0-100.0 ng/mL Interpretation [...] Castillo 04/12/19 10:55:52 AM > faxed to [facility] OncologyAnna Brynn 04/24/2024 8:48:43 AM > 04/23/2024 [...] Status W/U Status Risk Notes Problem Leukocytosis (158082577) Leukocytosis, unspecified (D72.829) Active confirmed Problem Morbid obesity (376169184) Morbid obesity (E66.01) Active confirmed Problem Allergic rhinitis (15319506) Allergic rhinitis, unspecified seasonality, unspecified trigger (J30.9) Active confirmed Problem Vitamin D deficiency (59239491) Vitamin D deficiency (E55.9) Active confirmed Vital Signs Weight 301.4 lbs 04/12/2024 Blood pressure systolic 130 mm Hg 04/12/19 25 Blood pressure diastolic 82 mm Hg 025 Heart Rate 65 /min 04/12/2024 Height 64 in 04/12/2024 BMI 51.73 kg/m2 04/12/2024 Encounters Encounter Location Date Provider Diagnosis [facility] [address] [facility] [address] [place], [place] [id number] 04/12/2024 Hi Argueta IFG (impaired fastin g [...] Appt Details Follow Up: 6 Months, Reason: Provider Name:Hi Sanderson , 01/06/2025 02:30:00 PM, [address] [facility] [address] [facility], [address], [place], [place], [id number], Progress Notes * LATA BORDENDOB:1980 (44 yo F)Acc No.[id number]:04/12/2024 Progress Notes Patient: LATA KUMAR Provider: Job Argueta M.D. :1980 A ge:43 Y S ex:Female Date:04/12/2024 Address:[address] [place], [place] [phone] Subjective: * Chief Complaints: * 1 . [...] aternal Grand Mother: diagnosed with Cancer. S iblings: diagnosed with Diabetes. 2 brother(s) , 2 [...] 144 74 - 106 mg/dL * Jaelyn nIgram 04/12/2024 12:3 1:47 PM > Kathie Nelson [...] * Procedure Codes: 8 2950 GLUCOSE TEST, 84248 GLYCATED HEMOGLOBIN TEST, Modifiers: QW , 78215 CBC WITH AUTO DIFF * Follow Up: 6 Months * Images: Billing Information: * Visit Code: 05935 Office Visit, New Pt., Level 4. * Procedure Codes: 75139 GLUCOSE TEST. 12772 GLYCATED HEMOGLOBIN TEST. Modifiers: QW 66676 CBC WITH AUTO DIFF. * Electronic signature of Socorro Argueta MD on 12/30/2024 at 01:57 PM EDT Sign off status: Pending * Provider: Job Argueta M.D. Date: 0 04/12/2024 Generated for George goode/Sl[employer]/eTransmitting on: 1 01:57 PM EDT History and Physical Notes * [...]
--- OUTSIDE RECORDS SUMMARY | 2024-07-03 06:15 | XMS_ITS ---
Author Organization Humberto Address [address] [facility] [address] [place] [id number] Care Team Providers Care Salary And Wage Administrator Name Role Phone Hi Argueta Unavailable [phone] Allergies Allergen (clinical drug ingredient) Drug/Non Drug [...] weekly 07/03/2024 Active Vitamin D3 1.25 MG (60390 UT) 1 capsule Orally once weekly 04/16/2024 Active Problems Problem Type SNOMED Code ICD Code Onset Dates Problem Status W/U Status Risk Notes Problem Type II diabetes mellitus without complication (764857070) Type 2 diabetes mellitus without complication, without long-term current use of insulin (E11.9) Active confirmed Vital Signs Weight 303.2 lbs 07/03/2024 Blood pressure systolic 130 mm Hg 07/04/19 25 Blood pressure diastolic 80 mm Hg 025 Heart Rate 83 /min 07/03/2024 Height 64 in 07/03/2024 BMI 52.04 kg/m2 07/03/2024 Encounters Encounter Location Date Provider Diagnosis [facility] [address] [place] [id number] 07/03/2024 Hi Argueta Type 2 diabetes mellitus [...] Details Follow Up: as scheduled,and prn, Reason: Provider Name:Hi Sanderson , 01/06/2025 02:30:00 PM, [address] [facility] [address], [place], [place], [id number], Progress Notes * LATA BORDENDOB:1980 (44 yo F)Acc No.[id number]:07/03/2024 Progress Notes Patient: Jus GRANDA LATA Provider: Job Argueta M.D. :1980 A ge:43 Y S ex:Female Date:07/03/2024 Address:[address] [place], [place] [phone] Subjective: * Chief Complaints: * 1 . [...] directed , Taking Vitamin D3 1.25 MG (57308 UT) Capsule 1 capsule Orally once weekly [...] * Images: Billing Information: * Visit Code: 12438 Office Visit, Est Pt., Level 3. * Procedure Codes: 3044F HG A1C LEVEL LT 7.0%. 3075F SYST BP GE 130 - 139MM HG. 3079F DIAST BP 80-89 MM HG. * Electronic signature of Socorro Argueta MD on 12/30/2024 at 01:57 PM EDT Sign off status: Pending * Provider: Job Argueta M.D. Date: 0 07/03/2024 Generated for George goode/Slime/Giuseppe on: 1 01:57 PM EDT History and [...]
--- OUTSIDE RECORDS SUMMARY | 2024-10-17 06:45 | XMS_ITS ---
[facility] [address] [facility] [address] [place] [id number] Care Team Providers Care Film Mounter Name Role Phone Hi Argueta Unavailable [phone] Allergies Allergen (clinical drug ingredient) Drug/Non Drug Allergy documented on EMR Reaction Allergy Type Onset Date Status metformin metFORMIN vomiting Drug Allergy Active Penicillin Unknown reaction Drug Allergy Active Results Component Value Reference Range Notes Glucose (In-House) Reviewed date:10/17/2024 11:26:25 PM Interpretation:116 Performing Lab: Notes/Report: 116 blood glucose 116 74 - 106 mg/dL CBC Venipuncture (in house) Reviewed date:10/17/2024 11:26:38 PM Interpretation: Performing Lab: Notes/Report: wbc 12.8 3.5 - 10 lymph 30.4% 15 - 50 mid 6.6% 2 - 15 gran 63.0% 35 - 80 rbc 5.74 3.5 - 5.5 hgb 15.5 11.5 - 16.5 hct 47.4 35 - 55 mcv 82.6 75 - 100 mch 27.0 25 - 35 mchc 32.7 31 - 38 platlet 375 100 - 400 Glycohemoglobin A1c (in hous e) Reviewed date:10/17/2024 11:26:48 PM Interpretation:6.2 Performing Lab: Notes/Report: 6.2 glycohemoglobin 6.2% 5 - 6.5 % P-Amylase Reviewed date:10/18/2024 10:16:11 AM Interpretation:Normal Performing Lab: Notes/Report: Test performed by [email or web address] [address] [place] [address] , [address], [place] [address] Иван Sorto MD, Benzene Worker CLIA: [id number] Amylase 45 28-100 U/L P-Comprehensive Metabolic Pa hakeem (CMP) Reviewed date:10/18/2024 10:16:11 AM Interpretation:gluc 102 Performing Lab: Notes/Report: Test performed by [facility] [address] [place] [address] , [address], [place] [address] Иван Sorto MD, Benzene Worker CLIA: [id number] Sodium 141 135-145 mmol/L Potassium 5.0 3.5-5.3 mmol/L Chloride 104 97-108 mmol/L CO2 26 20-32 mmol/L Glucose 102 65-99 mg/dL BUN 10 6-20 mg/dL Creatinine 0.89 0.50-1.00 mg/dL Calcium 10.0 8.6-10.4 mg/dL eGFR by Creatinine 82 >59 mL/min/1.73m2 Protein 7.2 6.0-8.3 g/dL Albumin 4.4 3.5-5.3 g/dL Alkaline Phosphatase 92 35-121 IU/L ALT (SGPT) 41 <5-47 IU/L AST (SGOT) 32 <5-40 IU/L Bilirubin, Total 0.3 <0.2-1.2 mg/dL A/G Ratio 1.6 1.1-2.5 P-Lipase Reviewed date:10/18/2024 10:16:11 AM Interpretation:Normal Performing Lab: Notes/Report: Test performed by [facility] [address] [place] [address] , [address], [place] [address] Иван Sorto MD, Benzene Worker CLIA: [id number] Lipase 36.0 13.0-60.0 U/L P-Vitamin D 25-Hydroxy Reviewed date:10/18/2024 10:16:11 AM Interpretation:32.6 Performing Lab: Notes/Report: Test performed by [facility] [address] [place] [address] [place] [address] Иван Sorto MD, Benzene Worker CLIA: [id number] Vitamin D 25-Hydroxy 32.6 30.0-100.0 ng/mL Interpretation of Vitamin D 25 OH: < 20 ng/mL - Deficiency 20 - 29 ng/mL - Insufficiency 30 - 100 ng/mL - Sufficiency > 100 ng/mL - Super-therapeutic- toxicity may occur above this level. Clinical correlation required. REASON FOR VISIT 6 months Medications Medication SIG (Take, Route, Frequency, Duration) Notes Start Date End Date Status Vitamin D3 1.25 MG (44754 UT) 1 capsule Orally once weekly 04/16/2024 Active Ozempic (0.25 or 0.5 MG/DOSE) 2 MG/3ML 0.5 mg Subcutaneous once weekly; Duration: 30 days 07/03/2024 Active Fluticasone Propionate 50 MCG/ACT 1 spray in each nostril Nasally once daily 04/12/2024 Active CPAP Supplies - as directed as directed 04/15/2024 Active Loratadine 10 MG 1 tablet Orally Once a day 2024 Active Vital Signs Weight 299 lbs 10/17/2024 Blood pressure systolic 130 mm Hg 10/18/19 25 Blood pressure diastolic 80 mm Hg 025 Heart Rate 73 /min 10/17/2024 Height 64 in 10/17/2024 BMI 51.32 kg/m2 10/17/2024 Encounters Encounter Location Date Provider Diagnosis [facility] [address] [place] [phone] 10/17/2024 Hi Argueta Type 2 diabetes mellitus without complication, without long-term current use of insulin E11.9 ; Vitamin D deficiency E55.9 and Epigastric abdominal pain R10.13 Assessments Encounter Date Diagnosis (ICD Code) Assessment Notes Treatment Notes Treatment Clinical Notes Section Notes 10/17/2024 Type 2 diabetes mellitus without complication, without long-term current use of insulin (ICD-10 - E11.9) Plan to increase Ozempic dose if pancreas labs are normal 10/17/2024 Vitamin D deficiency (ICD-10 - E55.9) 10/17/2024 Epigastric abdominal pain (ICD-10 - R10.13) Plan Of Treatment Treatment Notes Assessment Notes Type 2 diabetes mellitus wit hout complication, without long-term current use of insulin Plan to increase Ozempic dose if pancrea s labs are normal Next Appt Details Follow Up: 6 Months, Reason: Provider Name:Hi sierra, 01/06/2025 02:30:00 PM, [address] [facility], [address], [place], [phone], Progress Notes * PARISH BORDEN:1980 (44 yo F)Acc No.[id number]:10/17/2024 Progress Notes Patient: LATA KUMAR Provider: Job Argueta M.D. :1980 A ge:43 Y S ex:Female Date:10/17/2024 Address:[address] [place] [address] Subjective: * Chief Complaints: * 1 . 6 months. * HPI: E ndocrinology: 43 year old female presents with c/o Recent Blood Sugars P t here for 6 mo check up on DM 2. Pt states she is doing well since starting Ozempic in June a nd does not have any concerns today. * ROS: D ERMATOLOGY: no R nuzhat. n o H suzie. G ASTROENTEROLOGY: no N ausea. n o V omiting. A bdominal pain y es, o ccasional upper abd pain. U ROLOGY: no D ifficulty urinating. n [...] ather: alive 70 yrs, diagnosed with Diabetes, Stroke, Heart Disease. M other: alive 64 yrs, diagnosed with [...] directed , Taking Vitamin D3 1.25 MG (85248 UT) Capsule 1 capsule Orally once weekly , Taking Ozempic (0.25 or 0.5 MG/DOSE) 2 MG/3ML Solution Pen-injector 0.5 mg Subcutaneous once weekly , Medication List reviewed and reconciled with the patient * Allergies: P enicillin: Unknown reaction, metFORMIN: vomiting. Objective: * Vitals: W t: 299, Temp: 98.1, BP: 130/80, HR: 73, Nurse: irene, Ht: 64, BMI:51.32. * Examination: G eneral Examination: General Appearance: N AD. H eart: R SR. L ungs:?clear to auscultation. A bdomen: o bese, bowel sounds present, soft and nontender.? Assessment: * Assessment: 1. T ype 2 diabetes mellitus without complication, without long-term current use of insulin - E11.9 (Primary) 2 . V itamin D deficiency - E55.9 3 . E pigastric abdominal pain - R10.13 Plan: * Treatment: Value Reference Range A /G Ratio 1.6 1.1-2.5 - * A lbumin 4.4 3.5-5.3 - g/dL * A lkaline Phosphatase 92 35-121 - IU/L * A LT (SGPT) 41 <5-47 - IU/L * A ST (SGOT) 32 <5-40 - IU/L * B ilirubin, Total 0.3 <0.2-1.2 - mg/dL * B UN 10 6-20 - mg/dL * C alcium 10.0 8.6-10.4 - mg/dL * C hloride 104 97-108 - mmol/L * C O2 26 20-32 - mmol/L * C reatinine 0.89 0.50-1.00 - mg/dL * G lucose 102 H 65-99 - mg/dL * P otassium 5.0 3.5-5.3 - mmol/L * S odium 141 135-145 - mmol/L * P rotein 7.2 6.0-8.3 - g/dL * e GFR by Creatinine 82 >59 - mL/min/1.73m2 * Kathie Nelson 10/18/2024 10:1 6:04 AM EDT > See phone encounter ?LAB: Glucose (In-House) (Collection Date & Time - 10/17/2024)?116* Value Reference Range b lood glucose 116 74 - 106 mg/dL * Pedro Quevedoira 10/17/2024 11:54: 01 AM EDT >Hi Argueta 10/17/2024 11:26:22 PM EDT > ?LAB: Glycohemoglobin A1c (in house) (Collection Date & Time - 10/17/2024)? 6.2* Value Reference Range g lycohemoglobin 6.2% 5 - 6.5 % * King Justina 10/17/2024 11:54: 46 AM EDT >Hi Argueta 10/17/2024 11:26:44 PM EDT > Notes: Plan to increase Ozempic dose if pancreas labs are normal??2.?Vitamin D deficiency?LAB: P-Vitamin D 25-Hydroxy (Collection Date & Time - 10/17/2024 10:20 AM)? 32.6* Value Reference Range V itamin D 25-Hydroxy 32.6 30.0-100.0 - ng/mL * Kathie Nelson 10/18/2024 10:1 6:04 AM EDT > See phone encounter 3.?Epigastric abdominal pain?LAB: P-Amylase (Collection Date & Time - 10/17/2024 10:20 AM)?Normal* Value Reference Range A mylase 45 28-100 - U/L * Kathie Nelson 10/18/2024 10:1 6:04 AM EDT > See phone encounter ?LAB: P-Comprehensive Metabolic Panel (CMP) (Collection Date & Time - 10/17/2024 10:20 AM)?gluc 102* Value Reference Range A /G Ratio 1.6 1.1-2.5 - * A lbumin 4.4 3.5-5.3 - g/dL * A lkaline Phosphatase 92 35-121 - IU/L * A LT (SGPT) 41 <5-47 - IU/L * A ST (SGOT) 32 <5-40 - IU/L * B ilirubin, Total 0.3 <0.2-1.2 - mg/dL * B UN 10 6-20 - mg/dL * C alcium 10.0 8.6-10.4 - mg/dL * C hloride 104 97-108 - mmol/L * C O2 26 20-32 - mmol/L * C reatinine 0.89 0.50-1.00 - mg/dL * G lucose 102 H 65-99 - mg/dL * P otassium 5.0 3.5-5.3 - mmol/L * S odium 141 135-145 - mmol/L * P rotein 7.2 6.0-8.3 - g/dL * e GFR by Creatinine 82 >59 - mL/min/1.73m2 * Kathie Nelson 10/18/2024 10:1 6:04 AM EDT > See phone encounter ?LAB: P-Lipase (Collection Date & Time - 10/17/2024 10:20 AM)?Normal* Value Reference Range L ipase 36.0 13.0-60.0 - U/L * Kathie Nelson 10/18/2024 10:1 6:04 AM EDT > See phone encounter ?LAB: CBC Venipuncture (in house) (Collection Date & Time - 10/17/2024)* Value Reference Range w bc 12.8 3.5 - 10 * l ymph 30.4% 15 - 50 * m id 6.6% 2 - 15 * g ran 63.0% 35 - 80 * r bc 5.74 3.5 - 5.5 * h gb 15.5 11.5 - 16.5 * h ct 47.4 35 - 55 * m cv 82.6 75 - 100 * m ch 27.0 25 - 35 * m chc 32.7 31 - 38 * p latlet 375 100 - 400 * Justina Quevedo 10/17/2024 11:56: 05 AM EDT >Hi Argueta 10/17/2024 11:26:35 PM EDT > * Procedure Codes: 8 2950 GLUCOSE TEST, [address] GLYCATED HEMOGLOBIN TEST, Modifiers: QW , [address] CBC WITH AUTO DIFF, 1036F TOBACCO NON-USER, 3044F HG A1C LEVEL LT 7.0%, 3075F SYST BP GE 130 - 139MM HG, 3079F DIAST BP 80-89 MM HG * Follow Up: 6 Months * Images: Billing Information: * Visit Code: 11972 Office Visit, Est Pt., Level 4. * Procedure Codes: 47631 GLUCOSE TEST. 78247 GLYCATED HEMOGLOBIN TEST. Modifiers: QW 47123 CBC WITH AUTO DIFF. 1036F TOBACCO NON-USER. 3044F HG A1C LEVEL LT 7.0%. 3075F SYST BP GE 130 - 139MM HG. 3079F DIAST BP 80-89 MM HG. * Electronic signature of Socorro Argueta MD on 12/30/2024 at 01:57 PM EDT Sign off status: Pending * Provider: Job Argueta M.D. Date: 0 10/17/2024 Generated for George goode/Slime/Celeitting on: 1 01:57 PM EDT History and Physical Notes * HPI (History of Present Illness) Category Sub-Category Detail Notes Category Not es Endocrinology Recent Blood Sugars Pt here for 6 mo check up on DM 2. Pt states she is doing well since starting Ozempic in June and does not have any concerns today Examination Category Sub-Category Detail Notes Category Not es General Examination Heart: RSR Lungs: clear to auscultatio n Abdomen: obese, bowel sounds present, soft and nontender General Appearance: NAD
--- OUTSIDE RECORDS SUMMARY | 2024-12-09 10:45 | XMS_ITS ---
[facility] Address [address] [place], [place] [address] Care Team Providers Care Independent Beauty Consultant Name Role Phone Hi Argueta Unavailable [phone] Kajal Saldaña Unavailable [phone] Allergies Allergen (clinical drug ingredient) Drug/Non Drug Allergy documented on EMR Reaction Allergy Type Onset Date Status metformin metFORMIN vomiting Drug Allergy Active Penicillin Unknown reaction Drug Allergy Active Results Component Value Reference Range Notes CBC Fingerstick (in house) Reviewed date:12/09/2024 08:02:14 PM Interpretation: Performing Lab: Notes/Report: wbc 18.1 3.5 - 10 lym 31.2% 15 - 50 mid 6.9% 2 - 15 gran 61.9% 35 - 80 rbc 5.64 3.5 - 5.5 hgb 15.2 11.5 - 16.5 hct 46.2 35 - 55 mcv 81.9 75 - 100 mch 27.0 25 - 35 mchc 33.0 31 - 38 plat 222 100 - 400 X ray : Abdomen Series Reviewed date:12/11/2024 03:06:09 PM Interpretation:no acute findings Performing Lab: Notes/Report: no acute findings REASON FOR VISIT pain on left side and a taste of metal Medications Medication SIG (Take, Route, Frequency, Duration) Notes Start Date End Date Status Vitamin D3 1.25 MG (99566 UT) 1 capsule Orally weekly 10/20/2024 Acti ve Ozempic (1 MG/DOSE) 4 MG/3ML 1 mg Subcutaneous once a week; Duration: 30 days Active Hyoscyamine Sulfate 0.125 MG 1 tablet on the tongue and allow to dissolve as needed Orally every 8 hrs AC As needed 12/09/2024 Active metroNIDAZOLE 500 MG 1 tablet Orally Thr ee times a day; Duration: 7 days 12/09/2024 Active CPAP Supplies - as directed as directed 04/15/2024 Active Omeprazole 20 MG 1 capsule 1/2 to 1 h our before morning meal Orally Once a day; Duration: 30 days 12/09/2024 Active Problems Problem Type SNOMED Code ICD Code Onset Dates Problem Status W/U Status Risk Notes Problem Gastroesophageal reflux disease (152349052) GERD (gastroeso phageal reflux disease) (K21.9) Active confirmed Vital Signs Weight 294.2 lbs 12/09/2024 Blood pressure systolic 120 mm Hg 12/10/19 25 Blood pressure diastolic 80 mm Hg 025 Heart Rate 79 /min 12/09/2024 Height 64 in 12/09/2024 BMI 50.49 kg/m2 12/09/2024 Encounters Encounter Location Date Provider Diagnosis [facility] [address] [place] [id number] 12/09/2024 Kajal Saldaña Abdominal pain R10.9 ; GERD (gastroesophageal reflux disease) K21.9 and Diarrhea R19.7 Assessments Encounter Date Diagnosis (ICD Code) Assessment Notes Treatment Notes Treatment Clinical Notes Section Notes 12/09/2024 Abdominal pain (ICD-10 - R10.9) bland diet with good water intake 12/09/2024 GERD (gastroesophage al reflux disease) (ICD-10 - K21.9) 12/09/2024 Diarrhea (ICD-10 - R19.7) Plan Of Treatment Medication Medication Name Sig Start Date Stop Date Notes Hyoscyamine Sulfate 0.125 MG 1 tablet on the tongue and allow to dissolve as needed Orally every 8 hrs AC 12/09/2024 metroNIDAZOLE 500 MG 1 tablet Orally Thr ee times a day; Duration: 7 days 12/09/2024 Omeprazole 20 MG 1 capsule 1/2 to 1 h our before morning meal Orally Once a day; Duration: 30 days 12/09/2024 Treatment Notes Assessment Notes Abdominal pain bland diet with good water intake Pending Test Test Name Order Date Diarrhea Panel ([facility]) 12/09/2024 Next Appt Details Follow Up: will notify of te st results, Reason: Provider Name:Hi sierra, 01/06/2025 02:30:00 PM, [address], [address], [place], [id number], Progress Notes * PARISH BORDEN:1980 (44 yo F)Acc No.[id number]:12/09/2024 Progress Notes Patient: LATA KUMAR Provider: LANA Mejias :1980 A ge:43 Y S ex:Female Date:12/09/2024 Address:[address] [place] [address] Subjective: * Chief Complaints: * 1 . Pain on left side and a taste of metal. * HPI: G astroenterology: Pt complains of off and onpain that starts on lt side of stomach and radieates t o rt side for a few months . Pt states she recently noticed a knot on the left side as well. 43 year old female presents with c/o Abdominal Pain r ight upper quadrant, left upper quadrant. c/o Heartburn. c/o Nausea w ithout food, with food. c/o Vomiting. c/o Diarrhea w atery. c/o Abdominal Distension. c/o Belching. c/o Indigestion. Denies : Fever. D enies : Blood in Stool. * Medical History: I mpaired fasting glucose, Allergic rhinitis, Basal Cell Carcinoma, right side of nose, 2018, Migraine headache, complex, Gall bladder disease, 20 pack year smoking history, quit in 2023, Elevated WBC count, followed by Heme/Onc, Vitamin D deficiency, Fatty Liver. * Surgical History: C -Section 2003, 2012, cholecystectomy 2005, Nasal Adenoids Removed 03/25/2020. * Family History: F ather: alive 71 [...] ouside US: no. * Medications: T aking CPAP Supplies - - as directed as directed , Taking Vitamin D3 1.25 MG (71648 UT) Capsule 1 capsule Orally weekly , Taking Ozempic (1 MG/DOSE) 4 MG/3ML Solution Pen-injector 1 mg Subcutaneous once a week , Discontinued Loratadine 10 MG Tablet 1 tablet Orally Once a day , Discontinued Fluticasone Propionate 50 MCG/ACT Suspension 1 spray in each nostril Nasally once daily , Discontinued Vitamin D3 1.25 MG (11711 UT) Capsule 1 capsule Orally once weekly , Medication List reviewed and reconciled with the patient * Allergies: P enicillin: Unknown reaction, metFORMIN: vomiting. Objective: * Vitals: W t: 294.2, Temp: 98.4, BP: 120/80, HR: 79, Nurse: pe, Ht: 64, BMI:50.49. * P ast Orders: L ab:CBC Venipuncture (in house) (Order Date - 10/17/2024) (Collection Date & Time - 10/17/2024) Value Reference Range wbc 12.8 3.5 - 10 lymph 30.4% 15 - 50 mid 6.6% 2 - 15 gran 63.0% 35 - 80 rbc 5.74 3.5 - 5.5 hgb 15.5 11.5 - 16.5 hct 47.4 35 - 55 mcv 82.6 75 - 100 mch 27.0 25 - 35 mchc 32.7 31 - 38 platlet 375 100 - 400 L ab:Glycohemoglobin A1c (in house) (Order Date - 10/17/2024) (Collection Date & Time - 10/17/2024) Result: 6.2 Value Reference Range glycohemoglobin 6.2% 5 - 6.5 % L ab:P-Comprehensive Metabolic Panel (CMP) (Order Date - 10/17/2024) (Collection Date & Time - 10/17/2024 10:20 AM) Result: gluc 102 Value Reference Range A/G Ratio 1.6 1.1-2.5 - Albumin 4.4 3.5-5.3 - g/dL Alkaline Phosphatase 92 35-121 - IU/L ALT (SGPT) 41 <5-47 - IU/L AST (SGOT) 32 <5-40 - IU/L Bilirubin, Total 0.3 <0.2-1.2 - mg/dL BUN 10 6-20 - mg/dL Calcium 10.0 8.6-10.4 - mg/dL Chloride 104 97-108 - mmol/L CO2 26 20-32 - mmol/L Creatinine 0.89 0.50-1.00 - mg/dL Glucose 102 H 65-99 - mg/dL Potassium 5.0 3.5-5.3 - mmol/L Sodium 141 135-145 - mmol/L Protein 7.2 6.0-8.3 - g/dL eGFR by Creatinine 82 >59 - mL/min/1.73m2 L ab:P-Amylase (Order Date - 10/17/2024) (Collection Date & Time - 10/17/2024 10:20 AM) Result: Normal Value Reference Range Amylase 45 28-100 - U/L L ab:P-Lipase (Order Date - 10/17/2024) (Collection Date & Time - 10/17/2024 10:20 AM) Result: Normal Value Reference Range Lipase 36.0 13.0-60.0 - U/L * Examination: G eneral Examination: General Appearance: N AD, appears healthy, alert, pleasant, Color good, obese, well nourished and hydrated. H eart: R RR. L ungs: C TAB A&P. A bdomen: b owel sounds present, obese, soft; tender in all upper quads and left mid quad. Neurologic Exam: a lert and oriented. Assessment: * Assessment: 1. A bdominal pain - R10.9 (Primary) 2 . G ERD (gastroesophageal reflux disease) - K21.9 3 . D iarrhea - R19.7 Plan: * Treatment: Notes: bland diet with good water intake??2.?GERD (gastroesophageal reflux disease)? Start Omeprazole Capsule Delayed Release, 20 MG, 1 capsule 1/2 to 1 hour before morning meal, Orally, Once a day, 30 days, 30, Refills 3.??3.?Diarrhea? Start Hyoscyamine Sulfate Tablet Disintegrating, 0.125 MG, 1 tablet on the tongue and allow to dissolve as needed, Orally, every 8 hrs AC As needed, 30, Refills 5;?Start metroNIDAZOLE Tablet, 500 MG, 1 tablet, Orally, Three times a day, 7 days, 21 Tablet.?LAB: Diarrhea Panel ([facility]) ?LAB: CBC Fingerstick (in house) (Collection Date & Time - 12/09/2024)* Value Reference Range w bc 18.1 3.5 - 10 * l ym 31.2% 15 - 50 * m id 6.9% 2 - 15 * g ran 61.9% 35 - 80 * r bc 5.64 3.5 - 5.5 * h gb 15.2 11.5 - 16.5 * h ct 46.2 35 - 55 * m cv 81.9 75 - 100 * m ch 27.0 25 - 35 * m chc 33.0 31 - 38 * p lat 222 100 - 400 * Judy Stack 12/09/2024 0 5:02:40 PM EDT > Provider reviewed results while patient in office.Kajal Saldaña 12/09/2024 08:02:09 PM EDT > * Procedure Codes: 3 6416 CAPILLARY BLOOD DRAW, 25522 CBC WITH AUTO DIFF, 1036F TOBACCO NON-USER, 3074F SYST BP LT 130 MM HG, 3079F DIAST BP 80-89 MM HG * Follow Up: w ill notify of test results * Images: Billing Information: * Visit Code: 47443 Office Visit, Est Pt., Level 3. * Procedure Codes: 56110 CAPILLARY BLOOD DRAW. 42719 CBC WITH AUTO DIFF. 1036F TOBACCO NON-USER. 3074F SYST BP LT 130 MM HG. 3079F DIAST BP 80-89 MM HG. * Electronic signature of Loretta Saldaña APRN on 12/30/2024 at 01:57 PM EDT Sign off status: Pending * Provider: LANA Mejias Date: 0 12/09/2024 Generated for George goode/Slime/Giuseppe on: 1 01:57 PM EDT History and Physical Notes * HPI (History of Present Illness) Category Sub-Category Detail Notes Category Not es Gastroenterology Fever Vomiting Abdominal Pain right upper quadrant , left upper quadrant Diarrhea watery Blood in Stool Nausea without food, with f ood Abdominal Distension Heartburn Belching Indigestion Examination Category Sub-Category Detail Notes Category Not es General Examination Heart: RRR Lungs: CTAB A&P Abdomen: bowel sounds present , obese, soft; tender in all upper quads and left mid quad General Appearance: NAD, appears healthy , alert, pleasant, Color good, obese, well nourished and hydrated Neurologic Exam: alert and oriented
--- OUTSIDE RECORDS SUMMARY | 2024-12-30 13:57 | XMS_ITS | Clinical Summary ---
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[employer] Gender Identity Not on file Sexual Orientation Not on file Plan of Treatment Health Maintenance Due Date Last Done Comments CT Colonography 1979 Colonoscopy 1979 Colorectal Cancer Screening 1979 FOBT/FIT 1979 Fit-DNA (Cologuard) 1979 Sigmoidoscopy 1979 Depression Screening (12+) 1991 Tobacco Cessation Counseling and Screening (12+) 1991 HIV Screening 12/13/1994 Hepatitis C Screening 12/13/1997 DTAP/TDAP/TD VACCINES (1 - Tdap) 12/13/1998 Pap Smear 12/13/2000 Breast Cancer Screening 2019 COVID-19 VACCINE ( - 2023-2 5 season) 2024 Influenza Vaccine (#1) 2024 Lipid Panel 12/13/2024 Pneumococcal Vaccine: 0-49 Years Aged Out No longer eligible based on patient's age to complete this topic Insurance BCBS ANTHEM TRAD [facility] ANTH TRAD
--- OUTSIDE RECORDS SUMMARY | 2024-12-30 13:57 | XMS_ITS | Patient Health Record ---
Author Organization [facility] Address [address] [place] [id number] Care Team Providers Care Learning Strategist Name Role Phone Hi Argueta Unavailable [phone] Kajal Saldaña Unavailable [phone] Allergies Allergen (clinical drug ingredient) Drug/Non Drug [...] - 38 plat 222 100 - 400 P-Vitamin D 25-Hydroxy Reviewed date:04/15/2024 08:54:38 AM Interpretation:14.8 Performing Lab: Notes/Report: Test performed by [email or web address] [address] [place] [address] , [address], [place] [address] Иван Sorto MD, Knife Setter CLIA: [id number] Vitamin D 25-Hydroxy 14.8 30.0-100.0 ng/mL Interpretation of Vitamin D 25 [place]: < 20 ng/mL - Deficiency 20 - 29 ng/mL - Insufficiency 30 - 100 ng/mL - Sufficiency > 100 ng/mL - Super-therapeutic- toxicity may occur above this level. Clinical correlation required. P-TSH reflex to FT4 Reviewed date:04/15/2024 08:54:38 AM Interpretation: Normal Performing Lab: Notes/Report: Test performed by [facility], [address], [place] [address] Иван Sorto MD, Knife Setter CLIA: [id number] TSH reflex to FT4 1.11 0.43-5.25 mU/L P-Lipid Panel Reviewed date:04/15/2024 08:54:38 AM Interpretation:non-hdl 146 Performing Lab: Notes/Report: Test performed by [facility], [address] [place] [place] [address] Иван Sorto MD, Knife Setter CLIA: [id number] Cholesterol 197 <200 mg/dL Triglycerides 90 <150 [...] 124 Performing Lab: Notes/Report: Test performed by [facility], [facility] [address] [place] [address] , [address], [place] [address] Иван Sorto MD, Knife Setter CLIA: [id number] Sodium 141 135-145 mmol/L Potassium 4.4 3.5-5.3 [...] blood glucose 144 74 - 106 mg/dL X ray : Abdomen Series Reviewed date:12/11/2024 03:06:09 PM Interpretation:no acute findings Performing Lab: Notes/Report: no acute findings H-DIARRHEA PANEL Reviewed date:12/18/2024 01:53:08 PM Interpretation:negative Performing Lab: Notes/Report: CAMPYLOBACTER Not Detected NotDetected CLOSTR DIFFICIL Not Detected NotDetected PLESIOMONAS Not Detected NotDetected SALMONELLA, PCR Not Detected NotDetected YERSINIA Not Detected NotDetected VIBRIO, PCR Not Detected NotDetected VIBRIO CHOLERAE Not Detected NotDetected ECOLI (EAEC) Not Detected NotDetected ECOLI (EPEC) Not Detected NotDetected ECOLI (ETEC) Not Detected NotDetected SHIGATOXIN Not Detected NotDetected ECOLI O157 Not Detected NotDetected SHIG-INVAS ECOL Not Detected NotDetected CRYPTO Not Detected NotDetected CYCLOSPORA Not Detected NotDetected EHISTOLYTICA Not Detected NotDetected GIARDIA Not Detected NotDetected ADENO STOOL Not Detected NotDetected ASTROVIRUS Not Detected NotDetected NOROVIRUS Not Detected NotDetected ROTOVIRUS A Not Detected NotDetected SAPOVIRUS Not Detected NotDetected Glucose (In-House) Reviewed date:10/17/2024 11:26:25 PM Interpretation:116 [...] Interpretation:Normal Performing Lab: Notes/Report: Test performed by [email or web address] [address] [place] [address] , [address], [place] [address] Иван Sorto MD, Knife Setter CLIA: [id number] Amylase 45 28-100 U/L P-Comprehensive Metabolic Pa hakeem (CMP) Reviewed date:10/18/2024 10:16:11 AM Interpretation:gluc 102 Performing Lab: Notes/Report: Test performed by [email or web address] [address] [place] [address] , [address], [place] [address] Иван Sorto MD, Knife Setter CLIA: [id number] Sodium 141 135-145 mmol/L Potassium 5.0 3.5-5.3 [...] Interpretation:Normal Performing Lab: Notes/Report: Test performed by [email or web address] [address] [place] [address] , [address], [place] [address] Иван Sorto MD, Knife Setter CLIA: [id number] Lipase 36.0 13.0-60.0 U/L P-Vitamin D 25-Hydroxy Reviewed date:10/18/2024 10:16:11 AM Interpretation:32.6 Performing Lab: Notes/Report: Test performed by [email or web address] [address] [place] [address] , [place] [address] Иван Sorto MD, Knife Setter CLIA: [id number] Vitamin D 25-Hydroxy 32.6 30.0-100.0 ng/mL Interpretation of Vitamin D 25 [place]: < 20 ng/mL - Deficiency 20 - 29 ng/mL - Insufficiency 30 - 100 ng/mL - Sufficiency > 100 ng/mL - Super-therapeutic- toxicity may occur above this level. Clinical correlation required. RADHA Reviewed date:04/10/2024 02:22:59 PM Interpretation: Performing Lab: Notes/Report: Reason For Referral Diagnosis 1 Leukocytosis, unspec ified (D72.829) Referral Organization [facility] Referring Provider First Name Hi Referring Provider Last Name Cobb Referring Provider Speciality [facility] Referred Provider Didier Gonzalez Referred Provider Specialty Hematology/O ncology General Notes Sadie Castillo 04/12/19 10:55:52 AM > faxed to [facility] OncologyAnna Brynn 04/24/2024 8:48:43 AM > 04/23/2024 Referral Priority Routine Medications Medication SIG (Take, Route, Frequency, Duration) Notes Start Date End Date Status CPAP Supplies - as directed as directed 04/15/2024 Active Omeprazole 20 MG 1 capsule 1/2 to 1 h our before morning meal Orally Once a day; Duration: 30 days 12/09/2024 Active Vitamin D3 1.25 MG (12804 UT) 1 capsule Orally weekly 10/20/2024 Acti [...] Status Risk Notes Problem Gastroesophageal reflux disease (091136254) GERD (gastroesophag eal reflux disease) (K21.9) Active confirmed Problem Vitamin D deficiency (46585552) Vitamin D deficiency (E55.9) Active confirmed Problem Morbid obesity (379839795) Morbid obesity (E66.01) Active confirmed Problem Type II diabetes mellitus without complication (397166776) Type 2 diabetes mellitus without complication, without long-term current use of insulin (E11.9) Active confirmed Problem Leukocytosis (378254110) Leukocytosis, unspecified (D72.829) Active confirmed Problem Allergic rhinitis (07287657) Allergic rhinitis, unspecified seasonality, unspecified trigger (J30.9) Active confirmed Vital Signs Heart Rate 79 /min 12/09/2024 Blood pressure diastolic 80 mm Hg 12/09/2024 Height 64 in 12/09/2024 Blood pressure systolic 120 mm Hg 12/09/2024 Weight 294.2 lbs 12/09/2024 BMI 50.49 kg/m2 12/09/2024 Encounters Encounter Location Date Provider [facility] [address] [place] [id number] 04/12/2024 Hi Cobb IFG (impaired fastin g glucose) R73.01 ; Leukocytosis, unspecified D72.829 ; Morbid obesity E66.01 ; Allergic rhinitis, unspecified seasonality, unspecified trigger J30.9 ; Otalgia, left ear H92.02 and Vitamin D deficiency E55.9 [facility] [place] [facility] [address] [place], [place] [id number] 07/03/2024 Hi Cobb Type 2 diabetes mellitus without complication, without long-term current use of insulin E11.9 and Vitamin D deficiency E55.9 [facility] [address] [place], [place] [id number] 10/17/2024 Hi Cobb Type 2 diabetes mellitus without complication, without long-term current use of insulin E11.9 ; Vitamin D deficiency E55.9 and Epigastric abdominal pain R10.13 [facility] [address] [place], [place] [id number] 12/09/2024 Kajal Saldaña Abdominal pain R10.9 ; GERD (gastroesophageal reflux disease) K21.9 and Diarrhea R19.7 [facility] [address] [place], [place] [id number] 12/30/2024 Hi Cobb [facility] [address] [place], [place] [id number] 04/15/2024 Hi Cobb [facility] [address] [place], [place] [id number] 04/15/2024 Hi Cobb [facility] [address] [place], [place] [id number] 07/29/2024 Hi Cobb Type 2 diabetes mellitus without complication, without long-term current use of insulin E11.9 [facility] [address] [place], [place] [id number] 07/30/2024 Hi Cobb [facility] [address] [place], [place] [id number] 10/18/2024 Hi Cobb Type 2 diabetes mellitus without complication, without long-term current use of insulin E11.9 [facility] [address] [place] [id number] 10/29/2024 Hi Cobb [facility] [address] [place], [place] [id number] 11/29/2024 Hi Cobb [facility] [address] [place], [place] [id number] 12/23/2024 Hi Cobb Assessments Encounter Date Diagnosis (ICD Code) Assessment [...] K21.9) 12/09/2024 Abdominal pain (ICD-10 - R10.9) bland diet with good water intake 12/09/2024 Diarrhea (ICD-10 - R19.7) 10/17/2024 Epigastric abdominal pain (ICD-10 - R10.13) 04/12/2024 Morbid obesity (ICD-10 - E66.01) diet & exercise reviewed with patient 04/12/2024 Allergic rhinitis, unspecified seasonality, unspecified trigger (ICD-10 - J30.9) 04/12/2024 Otalgia, left ear (ICD-10 - H92.02) 04/12/2024 Vitamin D deficiency (ICD-10 - E55.9) Plan Of Treatment Pending Test Test Name Order Date Diarrhea Panel ([facility]) 12/09/2024 Next Appt Details Provider Name:Hi Sanderson ry, 01/06/2025 02:30:00 PM, [address] [facility], [address], [place], [place], [id number], Insurance Providers Payer Name Payer Address Payer Phone Subscriber Number Group Number Insured Name Patient Relationship to Insured Coverage Start Date Coverage End Date [facility] [address] [place] [address] [id number] LATA FRIAS Self - patient is the [...]
--- OUTSIDE RECORDS SUMMARY | 2024-12-30 13:58 | XMS_ITS | Referral Summary ---
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
--- NOTE | 2024-12-30 14:30 | MM_ITS ---
PROCEDURE INFORMATION: Exam: Bilateral Screening 3D Mammography Exam date and time: 12/30/2024 2:08 PM Age: 44 years old Clinical indication: Screening examination TECHNIQUE: Imaging protocol: Bilateral Screening tomosynthesis and 2D mammography including computer-aided detection (CAD) when performed. COMPARISON: No relevant prior studies available. Baseline FINDINGS: MAMMOGRAPHY: Breast composition: The breasts are heterogeneously dense, which may obscure small masses. Mass: None. Architectural distortion: None. Calcifications: No suspicious calcifications. Asymmetric density: None. Skin thickening: None. Axillary adenopathy: None. IMPRESSION: No mammographic evidence of malignancy. Annual screening is recommended unless otherwise clinically indicated. ASSESSMENT: BI-RADS Category 1: Negative.
== END 2024-12-30 23:59 | disposition home or self-care (01) ==
LOC: RAD 13:55
PROVIDERS: PCP Family Medicine; Visit Provider Obstetrics & Gynecology
DX: Z12.31 Encounter for screening mammogram for malignant neoplasm of breast (principal); R92.333 Mammographic heterogeneous density, bilateral breasts
CPT/HCPCS: 77063; 77067